=== PATIENT | female | born 1950 | race Caucasian/White ===

== ENCOUNTER → 2019-09-24 | Outpatient (CLI) | payer OTHER ==
--- NOTE | 2019-09-24 10:33 | Diagnostic Imaging Report ---
CT of the chest, without contrast, 09/24/2019. History: Chronic cough. Comparison: None available. Technique: Multidetector CT scanning of the chest was performed from the level of the apices to the upper abdomen without contrast. Coronal and sagittal multiplanar reformations were obtained. RADIATION DOSE: Total DLP: 497 mGy*cm Dose modulation, iterative reconstruction, and/or weight based adjustment of the mA/kV was utilized to reduce the radiation dose to as low as reasonably achievable. Discussion: Evaluation is limited without IV contrast. Chest: The heart, aorta, and pulmonary vessels are normal in size. Calcified subcarinal and right hilar lymph nodes are present. Calcified granuloma is present in the right lower lobe. Scattered irregular linear opacities are present in the right middle lobe, lingula, and both lung bases. There is no evidence of consolidation or pleural effusion. Limited evaluation of the upper abdomen shows normal adrenal glands. Multiple calcified granulomata are present throughout the spleen. Bones and soft tissues: No acute abnormality. Degenerative changes are present throughout the thoracic spine. IMPRESSION: Findings of previous granulomatous disease with mild bilateral scarring. No acute pulmonary findings. Signed by: Patrice Thayer on 09/24/2019 10:30 AM
== END ==
LOC: CT 08:45
PROVIDERS: ATTEND Internal Medicine
DX: R05 Cough (principal)
CPT/HCPCS: 71250

== ENCOUNTER → 2019-10-02 | Outpatient (CLI) | payer OTHER ==
[~2019-10-02] MED LIST: ALBUTEROL SULF 0.083% NEB SOLN 3 ML NEB ONE
== END ==
LOC: RESP 09:08
PROVIDERS: ATTEND Internal Medicine
DX: R05 Cough (principal)
CPT/HCPCS: 94060; 94640; 94727; 94729

== ENCOUNTER 2022-07-15 10:04 | Emergency (ER) | payer MEDICARE ==
[~2022-07-15] VITALS: Ht 152.4 cm; Wt 78.0 kg
[2022-07-15] MEDS ORDERED: ACETAMINOPHEN 325 MG TAB ONE (11:27)
[2022-07-15] MEDS ORDERED: KETOROLAC TROMETHAMINE 30 MG/ML VIAL ONE (11:28)
[2022-07-15] MEDS ORDERED: METHOCARBAMOL 750 MG TAB ONE (11:28)
[2022-07-15] MEDS ORDERED: METHOCARBAMOL 750 MG TAB PO ONE (11:30)
[2022-07-15] MEDS ORDERED: KETOROLAC TROMETHAMINE 60 MG/2 ML VIAL IM ONE (11:30)
[2022-07-15] MEDS ORDERED: ACETAMINOPHEN 325 MG TAB PO ONE (11:30)
[2022-07-15 11:40] LABS: CLARITY,URINE CLOUDY (CLEAR); COLOR,URINE YELLOW (YELLOW); KETONES,URINE NEGATIVE (NEGATIVE); LEUKOCYTE ESTERASE ,URINE MODERATE (NEGATIVE); NITRITE,URINE NEGATIVE (NEGATIVE); PROTEIN,URINE DIPSTICK TRACE (NEGATIVE)
[2022-07-15 11:41] LABS: URINE UROBILINOGEN 0.2 mg/dL (0.2 - 1)
[2022-07-15 11:43] LABS: BACTERIA,URINE MODERATE /HPF; EPITHELIAL CELLS,URINE MANY /LPF; RBC,URINE 0-5 /HPF (0-5)
[2022-07-15 12:42] LABS: HEMATOCRIT 40.6 % (34.2-44.1); HEMOGLOBIN 13.4 g/dL (12.0-16.0)
[2022-07-15 12:43] LABS: BASOPHILS % 0.2 % (0.0-1.0); EOSINOPHILS # (AUTO) 0.1 (0.0-0.4); EOSINOPHILS % 0.9 % (0.0-6.0); LYMPHOCYTES # (AUTO) 1.1 (1.0-3.2); MEAN CORPUSCULAR HEMOGLOBIN 29.1 pg (28-32); MEAN CORPUSCULAR VOLUME 88.3 fL (81-99); MONOCYTES # (AUTO) 0.8 (0.2-0.8); MONOCYTES % 9.4 % (4.4-11.3); NEUTROPHILS # (AUTO) 6.6 (2.1-6.9); NEUTROPHILS % 76.3 % (38.7-80.0); PLATELET COUNT 251 x10e3/uL (140-360); RED CELL DISTRIBUTION WIDTH 12.5 % (11.7-14.4)
[2022-07-15 13:09] LABS: ALBUMIN 3.8 g/dL (3.5-5.0); ALBUMIN/GLOBULIN RATIO 0.9 (0.8-2.0); ANION GAP 17.5 mmol/L (8-16); CALCIUM 9.8 mg/dL (8.4-10.2); CREATININE, SERUM 1.88 mg/dL (0.57-1.11); POTASSIUM 4.5 mmol/L (3.5-5.1)
[2022-07-15] MEDS ORDERED: METHOCARBAMOL750 MG PO (15:35)
== END 2022-07-15 15:41 | disposition home or self-care (01) ==
LOC: ER 10:12
DX: M54.50 Low back pain, unspecified (principal); I10 Essential (primary) hypertension; Z85.89 Personal history of malignant neoplasm of other organs and systems
CPT/HCPCS: 36415; 72100; 72131; 80053; 81001; 84484; 85025; 99283; J1885

== ENCOUNTER 2024-07-24 13:58 | Inpatient (IN) | payer MEDICARE ==
[2024-07-24] VITALS (7 sets, daily range): BP systolic 125–145; BP diastolic 52–71; PULSE 75–90; RESP 16–18; TEMP 98–99; O2SAT 100
[~2024-07-24] VITALS: Ht 152.4 cm; Wt 78.0 kg
[~2024-07-24 13:58] MED LIST changes: -ALBUTEROL SULF 0.083% NEB SOLN 3 ML NEB ONE; +METHOCARBAMOL750 MG PO
[2024-07-24 14:31] LABS: BASOPHILS % 0.3 % (0.0-1.0); EOSINOPHILS # (AUTO) 0.1 (0.0-0.4); EOSINOPHILS % 0.3 % (0.0-6.0); HEMATOCRIT 31.8 % (34.2-44.1); HEMOGLOBIN 10.2 g/dL (12.0-16.0); LYMPHOCYTES # (AUTO) 1.1 (1.0-3.2); LYMPHOCYTES % 7.2 % (18.0-39.1); MEAN CORPUSCULAR HGB CONC 32.1 g/dL (31-35); MEAN CORPUSCULAR VOLUME 84.1 fL (81-99); MONOCYTES # (AUTO) 0.9 (0.2-0.8); NEUTROPHILS # (AUTO) 13.2 (2.1-6.9); NEUTROPHILS % 85.7 % (38.7-80.0); PLATELET COUNT 377 x10e3/uL (140-360); RED BLOOD COUNT 3.78 x10e6/uL (3.6-5.1); RED CELL DISTRIBUTION WIDTH 14.2 % (11.7-14.4); WHITE BLOOD COUNT 15.35 x10e3/uL (4.8-10.8)
[2024-07-24 14:47] LABS: ALANINE AMINOTRANSFERASE 15 IU/L (0-55); ALBUMIN 3.1 g/dL (3.5-5.0); ALBUMIN/GLOBULIN RATIO 0.7 (0.8-2.0); ALKALINE PHOSPHATASE 97 IU/L (40-150); ANION GAP 17.8 mmol/L (8-16); BILIRUBIN,TOTAL 0.4 mg/dL (0.2-1.2); BLOOD UREA NITROGEN 33 mg/dL (7-26); BUN/CREATININE RATIO 17 (6-25); CALCIUM 9.7 mg/dL (8.4-10.2); CARBON DIOXIDE 19 mmol/L (22-29); CHLORIDE 96 mmol/L (98-107); CREATINE KINASE 43 IU/L (29-168); CREATININE, SERUM 1.98 mg/dL (0.57-1.11); EST GLOMERULAR FILTRATION RATE 26 ML/MIN (>=60); GLUCOSE 118 mg/dL (74-118); POTASSIUM 3.8 mmol/L (3.5-5.1); SODIUM 129 mmol/L (136-145); TOTAL PROTEIN 7.8 g/dL (6.5-8.1)
[2024-07-24] MEDS: SODIUM CHLORIDE 0.9% 1000ML 1,000 ML IV STA (15:28)
[2024-07-24 15:48] LABS: BILIRUBIN,URINE NEGATIVE (NEGATIVE); CLARITY,URINE SL CLOUDY (CLEAR); COLOR,URINE YELLOW (YELLOW); GLUCOSE, URINE NEGATIVE (NEGATIVE); KETONES,URINE NEGATIVE (NEGATIVE); LEUKOCYTE ESTERASE ,URINE TRACE (NEGATIVE); NITRITE,URINE NEGATIVE (NEGATIVE); PH,URINE 6 (5 - 7); PROTEIN,URINE DIPSTICK 1+ (NEGATIVE); URINE UROBILINOGEN 0.2 mg/dL (0.2 - 1)
[2024-07-24 16:00] LABS: BACTERIA,URINE MODERATE /HPF; EPITHELIAL CELLS,URINE MODERATE /LPF; RENAL EPITHELIAL CELLS,URINE RARE; TRANSITIONAL EPI CELLS,URINE MODERATE; WBC,URINE (MAN) 0-5 /HPF (0-5)
[2024-07-24] MEDS ORDERED: Morphine 4mg INJECTION 4 MG/ML INJ IV PRN (16:00)
[2024-07-24] MEDS ORDERED: ONDANSETRON HCL INJ 2MG/ML 2ML 2 MG/ML VIAL IV PRN (16:00)
[2024-07-24] MEDS: SODIUM CHLORIDE 0.9% 1000ML 1,000 ML IV SCH (17:11)
[2024-07-24] MEDS ORDERED: LOSARTAN-HCTZ1 EAC1 PO (17:49)
[2024-07-24] MEDS ORDERED: ASPIRIN EC81 MG PO (17:49)
[2024-07-24] MEDS ORDERED: EZETIMIBE10 MG PO (17:49)
[2024-07-24] MEDS ORDERED: OMEPRAZOLE40 MG PO (17:49)
[2024-07-24] MEDS ORDERED: ATIVAN0.5 MG PO (17:49)
[2024-07-24] MEDS ORDERED: NEBIVOLOL HCL10 MG PO (17:49)
[2024-07-24] MEDS ORDERED: ULTRAM 50MG50 MG PO (17:49)
[2024-07-24] MEDS: ACETAMINOPHEN 325 MG TAB PO PRN (18:50)
[2024-07-24 19:13] LABS: TROPONIN I < 0.030 ng/mL (0-0.300)
[2024-07-25] VITALS (9 sets, daily range): BP systolic 122–163; BP diastolic 58–77; PULSE 56–81; RESP 16–21; TEMP 97.7–98.4; O2SAT 91–100
[2024-07-25 05:47] LABS: BASOPHILS # (AUTO) 0.1 (0.0-0.1); BASOPHILS % 0.5 % (0.0-1.0); EOSINOPHILS # (AUTO) 0.2 (0.0-0.4); EOSINOPHILS % 2.5 % (0.0-6.0); HEMATOCRIT 32.1 % (34.2-44.1); HEMOGLOBIN 10.2 g/dL (12.0-16.0); MEAN CORPUSCULAR HEMOGLOBIN 27.1 pg (28-32); MEAN CORPUSCULAR HGB CONC 31.8 g/dL (31-35); MEAN CORPUSCULAR VOLUME 85.1 fL (81-99); MONOCYTES # (AUTO) 0.6 (0.2-0.8); MONOCYTES % 6.2 % (4.4-11.3); NEUTROPHILS # (AUTO) 7.7 (2.1-6.9); NEUTROPHILS % 80.3 % (38.7-80.0); PLATELET COUNT 337 x10e3/uL (140-360); RED BLOOD COUNT 3.77 x10e6/uL (3.6-5.1); RED CELL DISTRIBUTION WIDTH 14.3 % (11.7-14.4); WHITE BLOOD COUNT 9.63 x10e3/uL (4.8-10.8)
[2024-07-25 06:28] LABS: ALBUMIN 2.9 g/dL (3.5-5.0); ALBUMIN/GLOBULIN RATIO 0.7 (0.8-2.0); ANION GAP 16.6 mmol/L (8-16); BILIRUBIN,TOTAL 0.4 mg/dL (0.2-1.2); CALCIUM 9.4 mg/dL (8.4-10.2); CREATININE, SERUM 1.58 mg/dL (0.57-1.11); POTASSIUM 3.6 mmol/L (3.5-5.1); TOTAL PROTEIN 7.1 g/dL (6.5-8.1)
[2024-07-25] MEDS: LORAZEPAM 0.5 MG TAB PO PRN (10:14)
[2024-07-25] MEDS: PANTOPRAZOLE SOD 40 MG TABEC PO SCH (10:14)
[2024-07-25] MEDS: EZETIMIBE 10 MG TAB PO SCH (10:14)
[2024-07-25] MEDS: SOLIFENACIN SUCCINATE 5 MG TAB PO SCH (10:14)
[2024-07-25] MEDS: NEBIVOLOL 10 MG TAB PO SCH (10:14)
[2024-07-25] MEDS: LOSARTAN POTASSIUM 100 MG TAB PO SCH (10:15)
[2024-07-25] MEDS: HYDROCHLOROTHIAZIDE 25 MG TAB PO SCH (10:15)
[2024-07-25] MEDS ORDERED: GADOBENATE DIMEGLUMINE 1 ML IV ONE (10:25)
[2024-07-26] VITALS (8 sets, daily range): BP systolic 133–165; BP diastolic 53–88; PULSE 61–82; RESP 17–18; TEMP 97.5–98.3; O2SAT 95–100
[2024-07-26] MEDS: LOPERAMIDE HCL 2 MG CAP PO PRN (02:49)
[2024-07-26] MEDS: MAGNESIUM SULFATE 2GM/50ML 50 ML IV ONE (04:50)
[2024-07-26 07:41] LABS: BASOPHILS # (AUTO) 0.1 (0.0-0.1); BASOPHILS % 0.7 % (0.0-1.0); EOSINOPHILS # (AUTO) 0.3 (0.0-0.4); EOSINOPHILS % 3.9 % (0.0-6.0); HEMATOCRIT 28.9 % (34.2-44.1); HEMOGLOBIN 9.2 g/dL (12.0-16.0); LYMPHOCYTES % 14.3 % (18.0-39.1); MEAN CORPUSCULAR HEMOGLOBIN 27.2 pg (28-32); MEAN CORPUSCULAR HGB CONC 31.8 g/dL (31-35); MEAN CORPUSCULAR VOLUME 85.5 fL (81-99); MONOCYTES # (AUTO) 0.6 (0.2-0.8); MONOCYTES % 8.6 % (4.4-11.3); NEUTROPHILS # (AUTO) 4.9 (2.1-6.9); NEUTROPHILS % 72.4 % (38.7-80.0); PLATELET COUNT 319 x10e3/uL (140-360); RED BLOOD COUNT 3.38 x10e6/uL (3.6-5.1); RED CELL DISTRIBUTION WIDTH 14.3 % (11.7-14.4); WHITE BLOOD COUNT 6.72 x10e3/uL (4.8-10.8)
[2024-07-26 08:14] LABS: ALBUMIN 2.5 g/dL (3.5-5.0); ALBUMIN/GLOBULIN RATIO 0.6 (0.8-2.0); BILIRUBIN,TOTAL 0.2 mg/dL (0.2-1.2); CALCIUM 9.4 mg/dL (8.4-10.2); CREATININE, SERUM 1.2 mg/dL (0.57-1.11); TOTAL PROTEIN 6.4 g/dL (6.5-8.1)
[2024-07-26 08:33] LABS: TROPONIN I 0.008 ng/mL (0-0.300)
[2024-07-27] VITALS (7 sets, daily range): BP systolic 142–160; BP diastolic 60–82; PULSE 72–82; RESP 18–20; TEMP 98.2–98.8; O2SAT 97–100
[2024-07-27 05:31] LABS: BASOPHILS # (AUTO) 0.1 (0.0-0.1); BASOPHILS % 0.7 % (0.0-1.0); EOSINOPHILS # (AUTO) 0.3 (0.0-0.4); EOSINOPHILS % 3.5 % (0.0-6.0); HEMATOCRIT 30.4 % (34.2-44.1); HEMOGLOBIN 9.7 g/dL (12.0-16.0); MEAN CORPUSCULAR HGB CONC 31.9 g/dL (31-35); MEAN CORPUSCULAR VOLUME 84.7 fL (81-99); MONOCYTES # (AUTO) 0.6 (0.2-0.8); MONOCYTES % 7.1 % (4.4-11.3); NEUTROPHILS # (AUTO) 6.4 (2.1-6.9); NEUTROPHILS % 76.1 % (38.7-80.0); PLATELET COUNT 367 x10e3/uL (140-360); RED BLOOD COUNT 3.59 x10e6/uL (3.6-5.1); WHITE BLOOD COUNT 8.36 x10e3/uL (4.8-10.8)
[2024-07-27 06:01] LABS: ALBUMIN 2.7 g/dL (3.5-5.0); ALBUMIN/GLOBULIN RATIO 0.7 (0.8-2.0); ANION GAP 16.8 mmol/L (8-16); BILIRUBIN,TOTAL 0.3 mg/dL (0.2-1.2); CALCIUM 9.6 mg/dL (8.4-10.2); CREATININE, SERUM 1.06 mg/dL (0.57-1.11); MAGNESIUM 1.5 MG/DL (1.3-2.1); POTASSIUM 3.8 mmol/L (3.5-5.1); TOTAL PROTEIN 6.8 g/dL (6.5-8.1)
[2024-07-27] MEDS: ENOXAPARIN 30 MG/0.3 ML SYR SC SCH (16:44)
[2024-07-28] VITALS (8 sets, daily range): BP systolic 118–167; BP diastolic 72–84; PULSE 73–86; RESP 16–21; TEMP 97.9–98.4; O2SAT 96–98
[2024-07-29] VITALS (7 sets, daily range): BP systolic 149–168; BP diastolic 66–82; PULSE 66–85; RESP 18–20; TEMP 97.5–98.3; O2SAT 94–97
[2024-07-30] VITALS (8 sets, daily range): BP systolic 154–170; BP diastolic 63–79; PULSE 81–89; RESP 18–20; TEMP 97.9–98.6; O2SAT 94–98
[2024-07-30 06:30] LABS: BASOPHILS % 0.5 % (0.0-1.0); EOSINOPHILS # (AUTO) 0.5 (0.0-0.4); EOSINOPHILS % 8.9 % (0.0-6.0); HEMOGLOBIN 9.3 g/dL (12.0-16.0); LYMPHOCYTES # (AUTO) 0.8 (1.0-3.2); LYMPHOCYTES % 14.8 % (18.0-39.1); MONOCYTES # (AUTO) 0.6 (0.2-0.8); NEUTROPHILS # (AUTO) 3.6 (2.1-6.9); NEUTROPHILS % 65.6 % (38.7-80.0); PLATELET COUNT 363 x10e3/uL (140-360); RED BLOOD COUNT 3.45 x10e6/uL (3.6-5.1); RED CELL DISTRIBUTION WIDTH 14.2 % (11.7-14.4); WHITE BLOOD COUNT 5.48 x10e3/uL (4.8-10.8)
[2024-07-30 07:03] LABS: ALBUMIN 2.4 g/dL (3.5-5.0); ALBUMIN/GLOBULIN RATIO 0.6 (0.8-2.0); BILIRUBIN,TOTAL 0.2 mg/dL (0.2-1.2); CALCIUM 9.9 mg/dL (8.4-10.2); CREATININE, SERUM 0.87 mg/dL (0.57-1.11); MAGNESIUM 1.2 MG/DL (1.3-2.1); TOTAL PROTEIN 6.1 g/dL (6.5-8.1)
[2024-07-30] MEDS: FLUCONAZOLE 100 MG TAB PO SCH (09:09)
[2024-07-31] VITALS (16 sets, daily range): BP systolic 141–173; BP diastolic 44–80; PULSE 74–87; RESP 17–18; TEMP 97.5–98.5; O2SAT 96–99
[2024-07-31] MEDS: MAGNESIUM SULFATE 2GM/50ML 50 ML IV ONE (05:50)
[2024-07-31] MEDS: HYDRALAZINE HCL 20 MG/ML VIAL IV PRN (08:27)
[2024-07-31] MEDS: KETOROLAC TROMETHAMINE 30 MG/ML VIAL IV ONE (14:22)
[2024-08-01 04:02] VITALS: BP 150/78; PULSE 85; RESP 18; TEMP 97.7; O2SAT 96
[2024-08-01] MEDS: KETOROLAC TROMETHAMINE 30 MG/ML VIAL IV STA (06:05)
[2024-08-01 08:00] VITALS: BP 158/82; PULSE 81; RESP 19; TEMP 98.1; O2SAT 98
[2024-08-01 08:18] VITALS: BP 158/82; PULSE 81; RESP 19; TEMP 98.1; O2SAT 98
[2024-08-01 12:33] VITALS: BP 170/85
[2024-08-01 12:49] VITALS: BP 170/154; PULSE 81; RESP 18; TEMP 98.4; O2SAT 95
[2024-08-01 16:39] VITALS: BP 160/98; PULSE 77; RESP 19; TEMP 98.7; O2SAT 97
[2024-08-01] MEDS: LORAZEPAM 0.5 MG TAB PO PRN (20:02)
== END 2024-08-01 21:41 | disposition short-term general hospital (02) | DRG 193 ==
LOC: ER 14:11 → ERHOLD 15:49 → MED/SURG2 17:00
PROVIDERS: ADMIT Internal Medicine; ATTEND Internal Medicine
PROC: 05HC33Z Insertion of Infusion Device into Left Basilic Vein, Percutaneous Approach (ICD-10-PCS; principal; 2024-07-28)
DX: J18.9 Pneumonia, unspecified organism (principal); G93.41 Metabolic encephalopathy; E87.1 Hypo-osmolality and hyponatremia; N17.9 Acute kidney failure, unspecified; K52.1 Toxic gastroenteritis and colitis; E44.1 Mild protein-calorie malnutrition; E86.0 Dehydration; D64.9 Anemia, unspecified; R19.09 Other intra-abdominal and pelvic swelling, mass and lump; R35.89 Other polyuria; E83.42 Hypomagnesemia; T36.95XA Adverse effect of unspecified systemic antibiotic, initial encounter; Y92.230 Patient room in hospital as the place of occurrence of the external cause; M25.511 Pain in right shoulder; I12.9 Hypertensive chronic kidney disease with stage 1 through stage 4 chronic kidney disease, or unspecified chronic kidney disease; N18.31 Chronic kidney disease, stage 3a; R00.0 Tachycardia, unspecified; K21.9 Gastro-esophageal reflux disease without esophagitis; E78.5 Hyperlipidemia, unspecified; K57.30 Diverticulosis of large intestine without perforation or abscess without bleeding; E66.9 Obesity, unspecified; Z68.33 Body mass index [BMI] 33.0-33.9, adult; Z71.3 Dietary counseling and surveillance; Z87.440 Personal history of urinary (tract) infections; Z90.710 Acquired absence of both cervix and uterus; Z79.82 Long term (current) use of aspirin; Z79.899 Other long term (current) drug therapy
CPT/HCPCS: 36415; 36568; 70450; 71045; 72197; 74176; 80053; 81001; 82550; 83735; 83880; 84484; 85025; 87324; 87449; 93005; 99252; 99284; J0360; J0696; J1650; J1885; J2543; J3475; J7030